=== PATIENT | male | born 1960 | race Caucasian/White ===

== ENCOUNTER 2016-08-05 19:28 | Emergency (ER) | payer BC, OTHER ==
[2016-08-05 20:12] VITALS: BP 135/89
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
== END 2016-08-05 20:31 | disposition home or self-care (01) ==
LOC: ER 19:28
DX: Z03.89 Encounter for observation for other suspected diseases and conditions ruled out (principal)